=== PATIENT | male | born 1940 | race Caucasian/White ===

== ENCOUNTER 2017-05-13 10:23 | Day surgery (SDC) | payer MEDICARE, OTHER ==
[2017-05-13] MEDS ORDERED: Xylocaine 1% Vial 30 ML PF IJ ONE (10:24)
[2017-05-13] MEDS ORDERED: Lactated Ringers 1,000 ML IV ONE (10:24)
[2017-05-13] MEDS ORDERED: DIPRIVAN 200 MG/20 ML IV ONE (10:24)
[2017-05-13] MEDS ORDERED: Marcaine 0.5% SDV 10 ML IJ ONE (10:24)
--- NOTE | 2017-05-13 12:57 | OP ---
DATE OF PROCEDURE: 05/13/2017 1125 SURGEON: Bria Swift D.O. PREOPERATIVE DIAGNOSIS: Knee pain. POSTOPERATIVE DIAGNOSIS: Knee pain. PROCEDURES PERFORMED: Left genicular nerve block under fluoroscopic guidance. DESCRIPTION OF THE PROCEDURE: The patient was taken to the operating room and laid in the supine position on the table. The skin over the injection site was prepped and draped in sterile fashion. Under fluoroscope, the target bony structure site was visualized. Induction agent was given as per anesthesia while vital signs were monitored. Local anesthetic agent was introduced to anesthetize the skin in the subcutaneous tissue through the injection site. Under fluoroscopic guidance, a 20-gauge spinal needle was advanced into the target genicular nerves. 0.5 cc of 1% lidocaine and 0.5 cc of 0.25% Marcaine preservative free was injected into the target nerve. After the needle was removed, the skin was cleansed with alcohol and then a bandage was applied. No complications or adverse consequences were observed. The patient was returned to the holding area until stabilized before being discharged to home. There was 100% pain reduction after the procedure. The patient will be followed up within 10 days after the injection for re-evaluation.
--- NOTE | 2017-05-13 13:48 | XRAY ---
Indication: Left knee GNB. Intraoperative fluoroscopy was provided for 57 seconds. 6 digital spot images submitted for interpretation demonstrates 3 anterior spinal needle tips projecting over the distal femur shaft and one anterior spinal needle tip projecting over the proximal medial tibia. Correlate with intraoperative findings/report. Incidental total knee arthroplasty and scattered vascular calcifications.
--- NOTE | 2017-05-13 13:52 | XRAY ---
57 seconds fluoroscopy time in surgery for left knee GNB.
== END 2017-05-13 12:20 | disposition home or self-care (01) ==
LOC: SDC-PAIN 10:23
PROVIDERS: ATTEND Internal Medicine
DX: M25.562 Pain in left knee (principal); M25.561 Pain in right knee; M62.838 Other muscle spasm
CPT/HCPCS: 64450; 73560; 77003; J2001; J2704

== ENCOUNTER 2017-05-27 07:55 | Day surgery (SDC) | payer MEDICARE, OTHER ==
[2017-05-27] MEDS ORDERED: Xylocaine 1% Vial 30 ML PF IJ ONE (07:56)
[2017-05-27] MEDS ORDERED: Lactated Ringers 1,000 ML IV ONE (07:56)
[2017-05-27] MEDS ORDERED: Marcaine 0.5% SDV 10 ML IJ ONE (07:56)
[2017-05-27] MEDS ORDERED: DIPRIVAN 200 MG/20 ML IV ONE (07:56)
--- NOTE | 2017-05-27 11:23 | OP ---
DATE OF PROCEDURE: 05/27/2017 0935 SURGEON: Bria Swift D.O. PREOPERATIVE DIAGNOSES: Degenerative knee disease, osteoarthritis of the knee, knee pain. POSTOPERATIVE DIAGNOSES: Degenerative knee disease, osteoarthritis of the knee, knee pain. PROCEDURE PERFORMED: Left genicular nerve block under fluoroscopic guidance. DESCRIPTION OF THE PROCEDURE: The patient was taken to the operating room and laid in the supine position on the table. The skin over the injection site was prepped and draped in sterile fashion. Under fluoroscope, the target bony structure site was visualized. Induction agent was given as per anesthesia while vital signs were monitored. Local anesthetic agent was introduced to anesthetize the skin in the subcutaneous tissue through the injection site. Under fluoroscopic guidance, a 20-gauge spinal needle was advanced into the target genicular nerves. The preservative free 0.5 cc of 1% lidocaine and 0.5 cc of 0.25 - 0.5% Marcaine were injected into the target nerve. After the needle was removed, the skin was cleansed with alcohol and then a bandage was applied. No complications or adverse consequences were observed. The patient was returned to the holding area until stabilized before being discharged to home. There was 100% pain reduction after this procedure. The patient will be followed up within 10 days after the injection for re-evaluation.
--- NOTE | 2017-05-27 15:20 | XRAY ---
Indication: Left knee GNB. Intraoperative fluoroscopy was provided for 33 seconds. 5 digital spot images submitted for interpretation demonstrates 3 anterior spinal needle tips positioned over the distal femur shaft and one anterior spinal needle tip projecting over the proximal medial tibia. Correlate with interpretive findings/report. Incidental total knee arthroplasty.
--- NOTE | 2017-05-27 15:37 | XRAY ---
33 seconds fluoroscopy time in surgery for left GNB.
== END 2017-05-27 10:20 | disposition home or self-care (01) ==
LOC: SDC-PAIN 07:55
PROVIDERS: ATTEND Internal Medicine
DX: M25.562 Pain in left knee (principal); M25.561 Pain in right knee; M17.11 Unilateral primary osteoarthritis, right knee; M62.838 Other muscle spasm
CPT/HCPCS: 64450; 73560; 77003; J2001; J2704

== ENCOUNTER 2017-07-08 07:10 | Day surgery (SDC) | payer MEDICARE, OTHER ==
[2017-07-08] MEDS ORDERED: Lactated Ringers 1,000 ML IV ONE (07:11)
[2017-07-08] MEDS ORDERED: Marcaine 0.5% SDV 10 ML IJ ONE (07:11)
[2017-07-08] MEDS ORDERED: DIPRIVAN 200 MG/20 ML IV ONE (07:11)
[2017-07-08] MEDS ORDERED: Xylocaine-Mpf 2% 5 Ml Vial IJ ONE (07:11)
[2017-07-08] MEDS ORDERED: Xylocaine-Mpf 2% 5 Ml Vial ONE ×2 (10:36→11:06)
--- NOTE | 2017-07-08 12:46 | XRAY ---
Indication: Left knee RFA. Intraoperative fluoroscopy was provided for 1 minute 4 seconds. 8 digital spot images of the left knee submitted for interpretation demonstrates 3 anterior needle tips projecting over the distal femur shaft and 1 anterior needle tip projecting over the proximal medial tibia. Correlate with intraoperative findings/report. Incidental total knee arthroplasty.
--- NOTE | 2017-07-08 12:50 | XRAY ---
1 minutes and 4 seconds fluoroscopy time in surgery for left knee RFA.
--- NOTE | 2017-07-09 08:04 | OP ---
DATE OF PROCEDURE: 07/08/2017 1013 SURGEON: Bria Swift D.O. PREOPERATIVE DIAGNOSIS: Degenerative knee disease, osteoarthritis of the knee, knee pain. POSTOPERATIVE DIAGNOSIS: Degenerative knee disease, osteoarthritis of the knee, knee pain. PROCEDURES PERFORMED: Left genicular nerve radiofrequency ablation under fluoroscopic guidance. DESCRIPTION OF THE PROCEDURE: The patient was taken to the operating room and laid in the supine position on the table. The skin over the injection site was prepped and draped in sterile fashion. Under fluoroscope, the bony anatomy at the target insertion site was visualized. Induction agent was given as per anesthesia, while vital signs were monitored. Local anesthetic agent was introduced to anesthetize the skin in the subcutaneous tissue through the injection site. Under fluoroscopic guidance a standard size spinal needle with cannula was advanced into the target medial branch nerve as per standard protocol. Before the radiofrequency ablation motor and sensory nerve testing was conducted as per protocol. Under the safety guidance which ensured no motor nerves being involved, left genicular nerve radiofrequency ablation was conducted at 80 degrees Celsius for 90 seconds as per standard protocol for each level of radiofrequency ablation. After the needle and cannula were removed the skin was cleansed with alcohol and then a bandage was applied. No complications or adverse consequences were observed. The patient was returned to the holding area until stabilized before being discharged to home. The self-reported preoperative pain level was 5 out of 10 and postoperative pain level is 0 out of 10. The patient will be followed up within 10 days after the genicular nerve block for further re-evaluation.
== END 2017-07-08 11:40 | disposition home or self-care (01) ==
LOC: SDC-PAIN 07:10
PROVIDERS: ATTEND Internal Medicine
DX: M25.562 Pain in left knee (principal); M25.561 Pain in right knee; L90.5 Scar conditions and fibrosis of skin
CPT/HCPCS: 64640; 73560; 77003; 99100; J2704